=== PATIENT | male | born 1960 | race Caucasian/White ===

== ENCOUNTER 2016-12-19 19:30 | Emergency (ER) | payer SELFPAY ==
--- NOTE | ~2016-12-19 | HP ---
History And Physical [address] [facility] [place]. [address] NAME: BERE CONNOLLY : 64 STATUS : [facility]#: [id number] AGE: 56 ADM/REG DATE : 12/19/16 MR#: [id number] REPORT SERV DATE: 12/20/16 DICTATED BY: PAULO DSAILVA DATE: 12/19/16 REPORT STATUS : Draft TRANSCRIBED BY: MODMauro DATE: 12/19/16 DATE OF ADMISSION: 12/19/2016 ADMISSION DIAGNOSES: Acute stroke, acute seizure, hypercapnic respiratory failure. CHIEF COMPLAINT: Unable to obtain due to the patient's current medical status. HISTORY OF PRESENT ILLNESS: Mr. Connolly is a 56-year-old gentleman with a past medical history of underlying recent stroke who was admitted to the hospital and discharged just about two weeks ago. The patient presented again with symptoms of recurrent stroke. He had a repeat MRI which showed stroke. The CTA scan of his head on 12/19/2016 showed no evidence of bleeding. Of note, he had an MRI scan at the last admission, but not during the new one. Clinically, due to the onset of this inability to talk and right-sided weakness, he was given tPA around 6:15 p.m. on 12/19/2016. While he was being transferred to [facility], the patient had an acute seizure like event in which he stared out and did not make any conversation, according to the paramedics they feel that he had an acute seizure. He was nonresponsive to pain or stimuli. By that time, he was transferred here we had him transferred straight for a repeat CT scan of the brain as he at that point in time was about 45 minutes after getting tPA. That CT scan showed no changes. He was brought back to the emergency room for stabilization and it was noted that he was mildly diaphoretic, mckinney- appearing, taking shallow breaths. We did not get an ABG due to the fact that he had tPA. It was decided that he would need to be intubated at that moment in time. The patient was intubated and sent up to the CCU. He received a total of 4 mg of Versed and propofol and was placed on a propofol drip. He maintained hemodynamic stability throughout. However, the patient had the onset of seizure-like activity while on propofol. Neurology was 1 and patient got Ativan. PAST MEDICAL HISTORY: Recent stroke, left ventricular hypertrophy, left-sided carotid endarterectomy, coronary artery disease, hypertension, proteinuria, diabetes. HOME MEDICATIONS: Aspirin, Norvasc, Coreg, Plavix, multivitamin, vitamin B, Lipitor, lisinopril, Aldactone. ALLERGIES: MORPHINE. SOCIAL HISTORY: The patient currently has his son at the bedside. History of cocaine and marijuana use per record. Recently quit smoking. FAMILY HISTORY: History is not currently available. REVIEW OF SYSTEMS: Unable to obtain review of systems due to the patient's current medical status. PHYSICAL EXAMINATION: VITAL SIGNS: The patient is currently afebrile, heart rate 76, respiratory rate 14, blood pressure currently around 125 systolic. Oxygen saturation 99% on mechanical ventilation. History And Physical [address] [address] NAME: BERE CONNOLLY : 64 STATUS : [facility]#: [id number] AGE: 56 ADM/REG DATE : 12/19/16 MR#: [id number] REPORT SERV DATE: 12/20/16 DICTATED BY: PAULO DASILVA DATE: 12/19/16 REPORT STATUS : Draft TRANSCRIBED BY: CARLOS ENRIQUE DATE: 12/19/16 GENERAL: The patient is sedated. HEENT: PERRLA bilaterally. No JVD is noted. Neck is supple. PULMONARY: Clear to auscultation bilaterally, no wheezing. CARDIAC: Regular rate, no murmurs. ABDOMEN: Nondistended, soft. EXTREMITIES: Peripheral pulses noted in all extremities. NEUROLOGIC: The patient was initially seen and was clearly in a postictal state. He then had jerking of the upper extremity which was a slowed sure left greater than right. He has decreased response to pain on the right upper and lower extremities. He is still able to move those extremities, but less than the left. The patient has threat. No Babinski or clonus noted. LABORATORY EXAMINATION: No leukocytosis. INR of 1.1. Creatinine 2.01, BUN 25. ASSESSMENT AND PLAN: Mr. Connolly is a 56-year-old gentleman who had an acute stroke this evening with repeat. CT scan. After having a seizure and there is not a further bleed, but the patient is now intubated for hypercapnic respiratory failure after staying in a postictal state for over 45 minutes. 1. Acute stroke: Neurology is currently aware. The patient is status post tPA, currently holding all antiplatelet and anticoagulation medications. The patient is on Plavix at home, will need to discuss with Neurology in the morning when in and if to start aspirin and Plavix, 24 hours after stroke. 2. Acute seizure: This is after obtaining tPA, Neurology is also aware, he is getting Ativan now, started on Keppra along with a propofol drip. The patient is to get a MRA and MRI in the morning. 3. Acute hypercapnic respiratory failure: The patient is currently intubated, shall get a venous blood gas, advance ET tube by 3 cm. 4. Diet: The patient is currently n.p.o. 5. Prophylaxis: SCDs, Protonix. Code status. The patient is currently full code. 6. Social: The patient's son is at the bedside, the patient's ex- and is supposed to come. HFQ/MODL Paulo Dasilva MD / [id number]
--- NOTE | ~2016-12-19 | OP ---
Record Of Operation [facility] [address] [place]. [address] NAME: BERE SINGH : 64 STATUS : REG ER PAT#: [id number] AGE: 56 ADM/REG DATE : 12/19/16 MR#: [id number] REPORT SERV DATE: 12/19/16 DICTATED BY: PAULO DASILVA DATE: 12/19/16 REPORT STATUS : Draft TRANSCRIBED BY: MODL DATE: 12/19/16 DATE OF PROCEDURE: 12/19/2016 PROCEDURE: Endotracheal intubation. INDICATION AND PREOPERATIVE DIAGNOSIS: Acute seizure in the setting of acute stroke. The patient presented from outside hospital after getting tPA and had a stroke. His postictal state was prolonged, patient was taking shallow breaths, and mccann appearance of his skin and concern for hypercapnia, did not obtain an arterial blood gas due to recent tPA administration. We then gave him the benefit of the doubt and decided to intubate. POSTOPERATIVE DIAGNOSIS: Acute hypercapnic respiratory failure, acute stroke, acute seizure. PROCEDURE NOTE: The patient was in the emergency room, the patient was given bag-valve mask ventilation, neuro status was limited, the patient received 4 mg of IV Versed along with 100 mg of propofol. Using a MAC 3 blade, achieved only a grade 4 view. We then switched to GlideScope. He did vomit upon switching to the GlideScope. He was suctioned and a GlideScope was able to achieve a grade 2 view. We were able to insert the ET tube past vocal cords upon direct visualization. This was secured and condensation was noted in the endotracheal tube with breath sounds bilaterally unchanged with the CO2 monitor. OUTCOME: Successful endotracheal intubation using a GlideScope as patient was quite anterior. HFQ/CARLOS ENRIQUE Paulo Dasilva MD / [id number]
[~2016-12-19 19:30] MED LIST: ADVIL PO; ASA5GR PO; ASAB PO; COREG25 PO; CRESTOR10 PO; HALF81 PO; LIPITOR40 PO; MULTIVIT/MIN PO; NORV5 PO; PLAVIX PO; PRIN10 PO; SPIRO25 PO; VITAMIN B PO
[2016-12-19] MEDS ORDERED: ASPIRIN PO (19:51)
[2016-12-19] MEDS ORDERED: AMLODIPINE PO (19:51)
[2016-12-19] MEDS ORDERED: ATORVASTATIN PO (19:52)
[2016-12-19] MEDS ORDERED: B COMPLEX PO (19:52)
[2016-12-19] MEDS ORDERED: CARVEDILOL PO (19:52)
[2016-12-19] MEDS ORDERED: LISINOPRIL RX PO (19:53)
[2016-12-19] MEDS ORDERED: CLOPIDOGREL PO (19:53)
[2016-12-19] MEDS ORDERED: MULTIVITAMIN PO (19:53)
[2016-12-19] MEDS ORDERED: SPIRONOLACTONE PO (19:54)
[2016-12-19] MEDS ORDERED: *UNABLE2 (19:55)
[2017-01-14] MEDS ORDERED: NORV5 PO (18:33)
[2017-01-14] MEDS ORDERED: COREG6 PO (18:33)
[2017-01-14] MEDS ORDERED: HALF81 PO (18:33)
[2017-01-14] MEDS ORDERED: DEPAKOT500 PO (18:34)
[2017-01-14] MEDS ORDERED: LIPITOR40 PO (18:34)
[2017-01-14] MEDS ORDERED: PLAVIX PO (18:34)
[2017-01-14] MEDS ORDERED: KEPPRA1000 MG PO (18:34)
[2017-01-14] MEDS ORDERED: POTASSIUM PO (18:35)
== END 2016-12-19 20:12 | disposition admitted as inpatient to this hospital (09) ==
LOC: ER 19:30
DX: I63.9 Cerebral infarction, unspecified (principal); R56.9 Unspecified convulsions; J96.02 Acute respiratory failure with hypercapnia; Z88.5 Allergy status to narcotic agent; Z87.891 Personal history of nicotine dependence; Z79.82 Long term (current) use of aspirin; Z79.899 Other long term (current) drug therapy; I25.10 Atherosclerotic heart disease of native coronary artery without angina pectoris; I10 Essential (primary) hypertension; E11.9 Type 2 diabetes mellitus without complications; Z90.89 Acquired absence of other organs
CPT/HCPCS: 99285

== ENCOUNTER 2016-12-19 20:06 | Inpatient (IN) | payer SELFPAY ==
--- NOTE | ~2016-12-19 | DS ---
Discharge Summary [facility] [address] [place]. [address] NAME: BERE CONNOLLY : 64 STATUS : DIS IN PAT#: [id number] AGE: 56 ADM/REG DATE : 12/19/16 MR#: [id number] REPORT SERV DATE: 01/04/17 DICTATED BY: Greg NAVARRO DATE: 12/24/16 REPORT STATUS : Draft TRANSCRIBED BY: MODL DATE: 12/24/16 ADMISSION DATE: 12/19/2016 DISCHARGE DATE: 12/24/2016 The patient was admitted initially to the fire patroller service and transferred out of the intensive care unit to the care of the Hospitalist Service. CONSULTANTS: Initially, Dr. Mini Haq followed up by Dr. Veronica Kirkland, Neurology and Dr. Wilmer Lugo, Cardiology. DISCHARGE DIAGNOSES: 1. Left parietal cerebrovascular accident, status post tPA. 2. Hypercapnic respiratory failure, resolved. 3. Hypertension. 4. Seizures. 5. Acute kidney injury on chronic kidney disease. 6. History of coronary artery disease, status post coronary artery bypass remote. 7. Peripheral vascular disease, status post left carotid endarterectomy. 8. Tobacco abuse. 9. History of recent stroke earlier this month. HISTORY OF PRESENT ILLNESS: For complete history, please refer to admission H and P by Dr. Dasilva. Briefly, Mr. Connolly is a 56-year-old gentleman, who presented to the emergency room with symptoms of recurrent stroke including inability to talk with right- sided weakness. He was given tPA and transported via ambulance to [facility] from the ER at [facility]. In the ambulance, he apparently had an acute seizure events and by the time he arrived to the emergency room at [place], he was diaphoretic, taking shallow breaths, and mccann appearing per Dr. Dasilva's note. They did not do an ABG secondary to the fact that he had received tPA. He was electively intubated and sent to CCU. For the next several days, he was under the care of the fire patroller in the critical care unit. Over the next several days, he remained in CCU. He was weaned off the ventilator successfully on the morning of 12/21/2016. On 12/22/2016, he continued to improve clinically and was transferred out to a telemetry bed on the stroke unit. He was continued to be followed by Dr. Veronica Kirkland of Neurology. I initially saw Mr. Connolly for the first time on 12/23/2016. He was in no acute distress. Denied any chest pain or shortness of breath or abdominal pain. He reported that he was ambulatory to the bathroom without any difficulty. He denied any dizziness. However, he did complain of some bilateral calf pain, left leg greater than right. Other than that, he was alert and oriented, pleasant and cooperative. I did order a venous duplex of the bilateral lower extremities to rule out DVT. He did have this study done on 12/24/2016 and it was negative for DVT in either lower extremity. Most of his medications were held on admission and I did resume some of them on 12/23/2016. On 12/24/2016, he was doing well, no complaints. Vital signs were stable. Blood pressure 124/72, pulse 84, respirations 16, and he is afebrile at 3:30 p.m. We were awaiting Mr. Connolly's family to arrive with the bottles of medications that he was prescribed and taking at home prior to his admission. These were prescribed at [facility] at his discharge three weeks ago. So, with his vital signs being stable and his physical exam being Discharge Summary [address] [address] NAME: BERE CONNOLLY : 64 STATUS : DIS IN PAT#: [id number] AGE: 56 ADM/REG DATE : 12/19/16 MR#: [id number] REPORT SERV DATE: 01/04/17 DICTATED BY: rGeg NAVARRO DATE: 12/24/16 REPORT STATUS : Draft TRANSCRIBED BY: CARLOS ENRIQUE DATE: 12/24/16 unremarkable, he was discharged home in stable condition. Discharge labs include a basic metabolic panel revealing a sodium of 142, potassium 3.9, chloride 107, CO2 of 26, BUN 19, creatinine 1.44, GFR 55, glucose 86, calcium 8.8, magnesium 2.0. CBC revealed a white count of 8.8, hemoglobin 15, hematocrit 44.3, platelets 343,000. I did go through all the medications with Mr. Connolly and his son, who is going to live with and his ex who was at the bedside as well. Prior to his admission to [facility] three weeks ago with his first stroke, he was not on any cardiac medications. DISCHARGE ORDERS: Include: 1. Diet: 4 g cardiac diet is recommended. 2. Activity as tolerated. DISCHARGE MEDICATIONS: 1. Amlodipine 5 mg p.o. b.i.d. 2. Lipitor 80 mg p.o. daily at bedtime, prescription provided. 3. Carvedilol 6.25 mg p.o. b.i.d., prescription provided. 4. Plavix 75 mg p.o. daily. 5. Depakote 500 mg p.o. b.i.d., prescription provided. 6. Keppra 1000 mg p.o. b.i.d., prescription provided. 7. Multivitamin 1 p.o. daily. 8. Vitamin B complex stress tab one tab p.o. daily. 9. Aspirin 81 mg p.o. daily. The patient's son will come back to the Outpatient Pharmacy in the morning to garbage pick up worker his prescriptions that the hospital is providing. He also has a followup appointment with [facility] on 01/14/2017 at 2 p.m. DICTATED BY: DUYEN Gutiérrez DICTATED FOR: Mason Workman/CARLOS ENRIQUE DUYEN Gutiérrez Greg Navarro M.D. / [id number] CC: Austin Anderson M.D. [facility]
--- NOTE | ~2016-12-19 | EEG ---
Electroencephalogram [id number] [place]. [address] NAME: BERE SINGH : 64 STATUS : ADM IN PAT#: [id number] AGE: 56 ADM/REG DATE : 12/19/16 MR#: [id number] REPORT SERV DATE: 12/22/16 DICTATED BY: MINI HAQ DATE: 12/22/16 REPORT STATUS : Draft TRANSCRIBED BY: MODL DATE: 12/22/16 INTERPRETING PHYSICIAN: Mini Haq MD. EEG NUMBER: [id number]. REASON FOR EEG: Acute stroke, recurrent seizures. The patient was intubated and sedated. 23 surface electrodes, 10-20 international placement was used. During the more awake portions of the recording towards the end of the study, the patient's background activity showed moderate voltage, well organized 8 to 9 cycles per second located in the posterior head regions. Intermittent sharp in appearance waveforms were seen in frontal-central regions bilaterally during this study. No sustained epileptiform activity was noted during this recording. The patient became restless towards the end of the recording. No epileptiform activity was seen. Increase of muscle and activity anteriorly was noted, and the patient was more awake. title abstractor showed sinus rhythm, rate of approximately 72 beats per minute. IMPRESSION: MILDLY ABNORMAL EEG CHARACTERIZED BY PRESENCE OF DIFFUSE SLOWING OF ACTIVITY. THE PATIENT, HOWEVER, WAS SEDATED WITH DIPRIVAN AND PRECEDEX. WITH DECREASED SEDATION, THE BACKGROUND ACTIVITY APPEARED TO BE WELL ORGANIZED AND CLOSER TO NORMAL RANGE. THIS EEG MAY REPRESENT A POSTICTAL STATE . REPEAT EEG IS RECOMMENDED IF CLINICALLY INDICATED. NO SIGNIFICANT ASYMMETRY OF CEREBRAL ACTIVITY WAS PRESENT. THIS EEG MAY REPRESENT UNDERLYING DIFFUSE CEREBRAL DYSFUNCTION, HOWEVER, WITH THE PATIENT BEING SEDATED THIS DIAGNOSIS . LISSETT/CARLOS ENRIQUE Mini Haq MD / [id number] CC: Paulo Dasilva MD
--- NOTE | ~2016-12-19 | CN ---
Consultation Report [facility] [address] [place]. [address] NAME: BERE SINGH : 64 STATUS : ADM IN PAT#: [id number] AGE: 56 ADM/REG DATE : 12/19/16 MR#: [id number] REPORT SERV DATE: 12/20/16 DICTATED BY: MINI HAQ DATE: 12/20/16 REPORT STATUS : Draft TRANSCRIBED BY: MODMauro DATE: 12/20/16 NEUROLOGICAL CONSULTATION DATE OF CONSULTATION: 12/20/2016 HISTORY OF PRESENT ILLNESS: The patient is a 56-year-old white male with a known history of recent, approximately three weeks ago, history of a stroke for which he was hospitalized in [facility]. The patient's MRI at that time showed presence of an acute left hemispheric stroke. The patient was found by his son to be sitting on the porch smoking cigarette. Son noted that the patient had right facial droop and drooling and was having difficulty speaking and communicating. He was taken to the emergency room at [facility]. In the emergency room, the patient was found to be aphasic, had very minimal right-sided weakness. CT scan of the head showed no acute lesions or bleeding. I was contacted to advise the emergency room physician, Dr. Rodriguez, whether the patient should receive tPA. The patient's blood pressure was 170/90 at that time. Unfortunately, the patient's kidney function was abnormal with creatinine of over 2. The patient could not receive IV contrast. I recommended the patient with a history of small previous stroke and a new onset of aphasia to receive tPA in order to prevent the extension of the stroke, which could potentially involve the entire left hemisphere in the left MCA distribution. The patient was being transferred to [place] after receiving the tPA. The appropriate doses of tPA are corrected for renal function as the patient was noted by EMS to have a speech arrest and staring in space, it was presumed that the patient had a seizure, the patient was taken back to the emergency room to be stabilized. The patient was given Keppra and transferred to this [facility]. Repeat CT scan of the head which was done shortly after the patient received tPA showed no evidence of bleeding and no evidence of acute changes. On arrival to this hospital, the patient had another CT and had no evidence of acute bleed. The patient was observed to have another seizure after arriving here and was pale and diaphoretic. The patient was intubated to protect his airway because of respiratory difficulty. The events occurred after 7 p.m. and the neurologist waste cotton cleaner was contacted. He recommended to add Depakote to the patient's Keppra. The patient was started on propofol and Versed with decrease of abnormal activity. This morning, I was asked to evaluate the patient in the CCU Unit. PAST MEDICAL HISTORY: As mentioned above. The patient has a history of recent stroke, has a history of coronary artery disease, status post left carotid endarterectomy, status post CABG as per son the patient had a heart attack at age 32. The patient's ex- provided additional history later today, I was able to speak to her during my second rounds on the patient this afternoon. The patient's ex- stated that the patient's father suffered a stroke in his 70s. His father was adopted. His mother may have had a stroke also in her 70s, and also has a history of coronary artery disease in the patient's family. SOCIAL HISTORY: The patient continues to smoke. There is no history of alcohol use; however, there is a mention in the patient's records of the patient being positive for cocaine during his previous hospitalization with a previous stroke. Consultation Report [address] [place]. [address] NAME: BERE SINGH : 64 STATUS : ADM IN [facility]#: [id number] AGE: 56 ADM/REG DATE : 12/19/16 MR#: [id number] REPORT SERV DATE: 12/20/16 DICTATED BY: MINI HAQ DATE: 12/20/16 REPORT STATUS : Draft TRANSCRIBED BY: MODMauro DATE: 12/20/16 ALLERGIES: NO KNOWN ALLERGY. REVIEW OF SYSTEMS: Could not be obtained as per patient's family and the patient continued to smoke. Had no recent complaints after his stroke appeared to recover very quickly and had very little residual deficit. The speech problem that was observed yesterday was new or worsening of mild preexisting deficit, it was not clear from the history obtained from the family. The rest of review of system was negative. The patient does not have any history of recent head trauma. No history to suggest problems with joints or collagen vascular disease. The patient's stated that she was told during his last hospitalization three weeks ago that the that the patient's kidney function was mildly compromised. As per patient's ex-, there was no history of kidney disease in the family. The patient, however, did have a history of hypertension not known whether it was controlled. No history of diabetes mellitus. PHYSICAL EXAMINATION: VITAL SIGNS: The patient is currently on the pressure support to maintain his blood pressure between 150 and 170 systolic. Blood pressure has been maintained with Levophed. Pulse was 64, respirations 12, and temperature is 98.6. GENERAL: The patient was orally intubated and sedated. When sedation was decreased, the patient became very restless, moved all four extremities. He was trying to get up from the lying position. Did not seem to follow commands. CHEST: Symmetrical. LUNGS: Appeared clear. ABDOMEN: Soft, nontender. The patient had a midline sternotomy well-healed postsurgical scar, status post left carotid endarterectomy. EXTREMITIES: Show no clubbing, cyanosis. There was no peripheral edema. Peripheral pulses were present and symmetrical. SKIN: Clear. No petechiae, ecchymosis, or hemorrhages noted. NEUROLOGICAL EXAMINATION: MENTAL STATUS EXAM: The patient's mental status could not be evaluated in view of him being sedated and intubated. The patient, however, followed some commands when sedation was decreased and appeared to respond to voice. Eye exam, sclerae were not icteric. Conjunctiva was pink. Pupils were 3 mm, eyes were in mid position. Pupils were reacted to light. Corneal reflex was present. On inspection of the face, there was no evidence of facial asymmetry. The patient is orally intubated. Cranial nerves could not be tested. Neck was supple. There is no Kernig or Brudzinski. Cervical range of motion spontaneously appeared unimpaired. The rest of examination showed symmetrical withdrawal to pain except for mild decrease of strength or responsiveness in the right arm. Gag reflex was normal and the patient appeared to breathe over the vent. Ventilator settings were tidal volume of 600, rate of 12, PEEP of 5, FiO2 of 40, PIP of 23. LABORATORY STUDIES: Sodium 143, potassium 4.4, chloride 111, BUN 25, creatinine 2.02, Consultation Report [address] [place]. [address] NAME: BERE SINGH : 64 STATUS : ADM IN PAT#: [id number] AGE: 56 ADM/REG DATE : 12/19/16 MR#: [id number] REPORT SERV DATE: 12/20/16 DICTATED BY: MINI HAQ DATE: 12/20/16 REPORT STATUS : Draft TRANSCRIBED BY: CARLOS ENRIQUE DATE: 12/20/16 glomerular filtration rate 36, glucose 95. WBC count 13.2, hemoglobin 14, hematocrit 41.8, and platelet count 404,000. PT/INR 1.9. MRI of the brain was reviewed, appears to show a small subcortical area of ischemia in the left middle cerebral artery distribution. No evidence of hemorrhage, midline shift, or subdural or epidural collection present. IMPRESSION: Acute cerebrovascular accident could not exclude an embolic stroke. The patient has recent history of a stroke approximately three weeks ago which appears to have been in the same vascular distribution. History of coronary artery disease. Disease status post CABG, history of IA at early age constitutes a significant risk factor for his stroke. The patient has a family history of a stroke; therefore, I would recommend to obtain hypercoagulable profile which should include C-reactive protein, lupus anticoagulant, protein C, protein S, antithrombin III, homocystine levels (especially in view of the finding of abnormal renal function). I would recommend to obtain echocardiogram with a bubble study and eventually PEYTON to rule out bacterial endocarditis since the patient has known history of drug use. I would recommend continue the patient's blood pressure in the 150-160 systolic range until tomorrow until the patient could be extubated. Recommend to follow stroke orders including deep venous thrombosis prophylaxis, restart aspirin and Plavix after 24 hours following the tPA. The patient would be a good candidate for a loop recorder to evaluate for possible cardiac arrhythmias and/or atrial fibrillation. Stroke prevention and smoking cessation will be discussed with the patient once he is extubated and able to cooperate. I would initiate statins as soon as the patient is able to swallow and PT, OT, and Speech Therapy evaluation. Above was discussed with the patient's son and the patient's ex-. This was a critical care visit, total time 85 minutes two visits combine, the morning and afternoon visit. LISSETT/CARLOS ENRIQUE Mini Haq MD / [id number] CC: Paulo Dasilva MD UNKNOWN
--- NOTE | ~2016-12-19 | CN ---
Consultation Report [facility] [address] [place]. [address] NAME: BERE CONNOLLY : 64 STATUS : ADM IN [facility]#: [id number] AGE: 56 ADM/REG DATE : 12/19/16 MR#: [id number] REPORT SERV DATE: 12/21/16 DICTATED BY: PONCE PATTERSON DATE: 12/21/16 REPORT STATUS : Draft TRANSCRIBED BY: MODL DATE: 12/21/16 CARDIOLOGY CONSULTATION DATE OF CONSULTATION: 12/21/2016 REASON FOR CONSULTATION: This is cardiology consultation, due to history of coronary disease. HISTORY OF PRESENT ILLNESS: Mr. Connolly is a 56-year-old gentleman, who presented to an outside facility with evidence of acute CVA. He had a recent history of TIA. This appeared to be consistent with a large MCA distribution and he underwent tPA administration. After that, he began to have some issues with seizures and underwent intubation and now is extubated. We have been consulted, due the fact that the patient has known history of coronary disease. He is status post CAB in [place] in 2001. He also has problems with vasculopathy and had carotid endarterectomy performed in 2008. Despite these histories of peripheral vascular disease and coronary artery disease. The patient has had normal ejection fraction including a recent echocardiogram performed earlier in November, which demonstrated both normal LV systolic function, no regional wall motion abnormalities, and a negative bubble study. He is currently chest pain free. Hemodynamically he is stable. Initially, he received some IV pressor agents to try to maintain his systolic blood pressure greater than 150, due to the CVA, but these have now been turned off. PAST MEDICAL HISTORY: 1. Notable for coronary artery disease, status post CAB in 2001, normal ejection fraction. 2. History of carotid endarterectomy in 2008. 3. History of TIA and now history of CVA. 4. Hypertension. HOME MEDICATIONS: Amlodipine, aspirin, Plavix, lisinopril, and spironolactone. FAMILY HISTORY: Negative for premature coronary disease. SOCIAL HISTORY: The patient has a known history of drug or illicit drug abuse that includes being tested positive for cocaine on hospital admissions in the past including recent admission in early November. History of marijuana and benzodiazepine use as well. The patient continues to use tobacco. Denies alcohol. REVIEW OF SYSTEMS: As noted above. All other systems reviewed and negative. PHYSICAL EXAMINATION: VITAL SIGNS: Blood pressure of 150/76, pulse 90, and respirations 16. GENERAL: Well-developed, well-nourished. HEENT: No icterus. Good dentition. Consultation Report [facility] [address] [place]. [address] NAME: BERE CONNOLLY : 64 STATUS : ADM IN PAT#: [id number] AGE: 56 ADM/REG DATE : 12/19/16 MR#: [id number] REPORT SERV DATE: 12/21/16 DICTATED BY: PONCE PATTERSON DATE: 12/21/16 REPORT STATUS : Draft TRANSCRIBED BY: CARLOS ENRIQUE DATE: 12/21/16 NECK: Supple. No masses or thyromegaly LUNGS: Breathing comfortably. No rales or wheezes. COR: Normal S1, S2. No S3 or S4. No murmurs, clicks, rubs. No JVD ABD: Soft, nondistended, nontender, no hepatosplenomegaly. EXT: No clubbing, cyanosis or edema. Peripheral pulses 2+/=bilaterally. SKIN: Warm and dry. No visible lesions. MS: Chest wall without deformity, no obvious clavicular fractures. NEURO/PSYCH: Oriented X3. No anxiety or depression. DIAGNOSTIC DATA: EKG has not yet been done. Most recent EKG was unremarkable. Telemetry has been on unremarkable. IMPRESSION: 56-year-old gentleman with longstanding history of coronary artery disease and peripheral vascular disease, status post CAB, status post carotid endarterectomy, presents with CVA. From a cardiac standpoint, he appears to be stable. He had a recent echocardiogram showing normal cardiac structure and function. Normal bubble study. I would recommend checking his carotid arteries via ultrasound given his known history of carotid artery disease and carotid endarterectomy. I would not recommend implantable loop recorder, as I believe followup has been an issue in the past. The patient would have followup difficulties at this time as well. Without appropriate followup of the loop recorder it will difficult to glean appropriate information to suggest whether he needs long-term anticoagulation or not. Otherwise, he appears to be hemodynamically stable and stable from a coronary artery disease standpoint at this point in time. IRVING/CARLOS ENRIQUE Ponce Patterson M.D. / [id number] CC: Paulo Dasilva MD
[~2016-12-19 20:06] MED LIST changes: +*UNABLE2; +AMLODIPINE PO; +ASPIRIN PO; +ATORVASTATIN PO; +B COMPLEX PO; +CARVEDILOL PO; +CLOPIDOGREL PO; +LISINOPRIL RX PO; +MULTIVITAMIN PO; +SPIRONOLACTONE PO
[2016-12-20 01:00] LABS: BE (BASE EXCESS) -4.7 MEQ/L (0 +/- 2.5); CARBOXYHEMOGLOBIN 0.6 % (0-3); HCO3 (ACTUAL BICARBONATE) 19.5 MEQ/L (23-27); HEMOBLOGIN CONTENT 14.3 G/DL (14-18); INSTRUMENT SERIAL # 35151; METHEMOGLOBIN 0.5 % (0-3); MODE CMV; OPERATOR ID 33449; PCO2 (CO2 TENSION) 34 MMHG (35-45); PO2 (O2 TENSION) 70 MMHG (79-93); SAMPLE Venous; TIDAL VOLUME 600 ML; pH 7.38 (7.37-7.43)
[2016-12-20 03:37] LABS: BE (BASE EXCESS) -5.1 MEQ/L (0 +/- 2.5); CARBOXYHEMOGLOBIN 0.4 % (0-3); HCO3 (ACTUAL BICARBONATE) 18.8 MEQ/L (23-27); HEMOBLOGIN CONTENT 13.9 G/DL (14-18); INSTRUMENT SERIAL # 35151; METHEMOGLOBIN 0.3 % (0-3); MODE CMV; O2 CONTENT 18.7 VOL% (18-24); OPERATOR ID 13415; PCO2 (CO2 TENSION) 32 MMHG (35-45); PO2 (O2 TENSION) 88 MMHG (79-93); SAMPLE Venous; TIDAL VOLUME 600 ML; pH 7.39 (7.37-7.43)
[2016-12-20 03:57] LABS: BASOPHILS 0.2 %; BASOPHILS ABSOLUTE 0.02 10/3/uL (0.0-0.16); EOSINOPHILS 1.3 %; EOSINOPHILS ABSOLUTE 0.17 10/3/uL (0.0-0.53); HEMATOCRIT 41.8 % (40.0-51.0); IMMATURE GRANULOCYTES 0.2 %; IMMATURE GRANULOCYTES ABSOLUTE 0.03 10/3/uL (0.0-0.11); LYMPHOCYTES 16.9 %; LYMPHOCYTES ABSOLUTE 2.23 10/3/uL (0.67-4.30); MEAN CORPUS HGB CONC 33.5 g/dL (32.0-36.0); MEAN CORPUSCULAR HEMOGLOB 28.6 pg (26.0-34.0); MEAN CORPUSCULAR VOLUME 85.5 fL (80-100); MEAN PLATELET VOLUME 9.5 fL (9.2-13.0); MONOCYTES 5.8 %; MONOCYTES ABSOLUTE 0.77 10/3/uL (0.21-1.20); NEUTROPHILS 75.6 %; NEUTROPHILS ABSOLUTE 9.95 10/3/uL (2.02-8.40); PLATELET COUNT 404 10/3/uL (150-400); RBC DISTRIBUTION WIDTH 12.5 % (12.0-16.0); RED CELL COUNT 4.89 10/6/uL (4.7-6.1)
[2016-12-20 04:04] LABS: MANUAL DIFF NO %; WHITE BLOOD CELLS 13.2 10/3/uL (4.5-10.5)
[2016-12-20 04:17] LABS: INTERNATIONAL NORMAL RATI 1.9 UNITS (-)
[2016-12-20 04:31] LABS: BUN (BLOOD UREA NITROGEN) 25 MG/DL (6-23); CALCIUM, SERUM 8.4 MG/DL (8.5-10.4); CHLORIDE, SERUM 111 MMOL/L (96-112); CO2 (CARBON DIOXIDE) 23 MMOL/L (24-34); CREATININE 2.02 MG/DL (0.70-1.30); GFR AFRICAN AMERICAN 42 ML/MIN (>=60); GFR NON AFRICAN AMERICAN 36 ML/MIN (>=60); GLUCOSE, SERUM 95 MG/DL (60-99); POTASSIUM, SERUM 4.4 MMOL/L (3.5-5.3); SODIUM, SERUM 143 MMOL/L (135-148)
[2016-12-20 10:02] LABS: TROPONIN I 0.06 NG/ML (<0.05)
[2016-12-20 16:39] LABS: BENZODIAZEPINES (NOT ORD) POS (NEG); PHENCYCLIDINE(PCP) NEG (NEG)
[2016-12-20 16:40] LABS: AMPHETAMINES (NOT ORD) NEG (NEG); BARBITURATES (NOT ORDERED NEG (NEG); CANNABINOIDS (THC) POS (NEG); COCAINE (NOT ORDERED) NEG (NEG); OPIATES NEG (NEG); TRICYCLICS NEG (NEG)
[2016-12-21 03:50] LABS: ALLENS TEST Pos; BE (BASE EXCESS) -3.1 MEQ/L (0 +/- 2.5); CARBOXYHEMOGLOBIN 0.1 % (0-3); HCO3 (ACTUAL BICARBONATE) 20.9 MEQ/L (23-27); HEMOBLOGIN CONTENT 14.2 G/DL (14-18); INSTRUMENT SERIAL # 35151; METHEMOGLOBIN 0.4 % (0-3); MODE CMV; O2 CONTENT 19.6 VOL% (18-24); OPERATOR ID 33449; PCO2 (CO2 TENSION) 34 MMHG (35-45); PO2 (O2 TENSION) 122 MMHG (79-93); SAMPLE Arterial; TIDAL VOLUME 600 ML
[2016-12-21 04:45] LABS: BASOPHILS 0.4 %; BASOPHILS ABSOLUTE 0.04 10/3/uL (0.0-0.16); EOSINOPHILS 5.3 %; HEMATOCRIT 40.2 % (40.0-51.0); HEMOGLOBIN 13.3 g/dL (13.6-17.8); IMMATURE GRANULOCYTES 0.2 %; IMMATURE GRANULOCYTES ABSOLUTE 0.02 10/3/uL (0.0-0.11); LYMPHOCYTES 21.7 %; LYMPHOCYTES ABSOLUTE 2.03 10/3/uL (0.67-4.30); MEAN CORPUS HGB CONC 33.1 g/dL (32.0-36.0); MEAN CORPUSCULAR HEMOGLOB 28.2 pg (26.0-34.0); MEAN CORPUSCULAR VOLUME 85.4 fL (80-100); MEAN PLATELET VOLUME 9.5 fL (9.2-13.0); MONOCYTES 7.1 %; MONOCYTES ABSOLUTE 0.66 10/3/uL (0.21-1.20); NEUTROPHILS 65.3 %; NEUTROPHILS ABSOLUTE 6.11 10/3/uL (2.02-8.40); PLATELET COUNT 383 10/3/uL (150-400); RBC DISTRIBUTION WIDTH 12.7 % (12.0-16.0); RED CELL COUNT 4.71 10/6/uL (4.7-6.1); WHITE BLOOD CELLS 9.4 10/3/uL (4.5-10.5)
[2016-12-21 04:47] LABS: MANUAL DIFF NO %
[2016-12-21 04:53] LABS: CALCIUM, SERUM 8.8 MG/DL (8.5-10.4); CHLORIDE, SERUM 113 MMOL/L (96-112); CO2 (CARBON DIOXIDE) 21 MMOL/L (24-34); GFR AFRICAN AMERICAN 60 ML/MIN (>=60); GFR NON AFRICAN AMERICAN 52 ML/MIN (>=60); GLUCOSE, SERUM 81 MG/DL (60-99); SODIUM, SERUM 144 MMOL/L (135-148)
[2016-12-21 04:56] LABS: BUN (BLOOD UREA NITROGEN) 16 MG/DL (6-23); CREATININE 1.51 MG/DL (0.70-1.30); POTASSIUM, SERUM 4.5 MMOL/L (3.5-5.3)
[2016-12-21 09:53] LABS: ALBUMIN 2.6 G/DL (3.5-5.0); SGPT(ALT) 19 U/L (5-65); TOTAL BILIRUBIN 0.2 MG/DL (0-1.2)
[2016-12-21 09:54] LABS: ALKALINE PHOSPHATASE 117 U/L (45-117); DIRECT BILIRUBIN < 0.1 MG/DL (0.0-0.4); INDIRECT BILIRUBIN(NOT ORDER) 0.1 MG/DL (0.1-0.9); SGOT(AST) 31 U/L (5-40); TOTAL PROTEIN 6.4 G/DL (6.0-8.5)
[2016-12-21 13:24] LABS: ASCORBIC ACID (UR NOT ORDER) NEG (NEG); BILIRUBIN, URINE NEGATIVE (NEG); KETONE, URINE NEGATIVE (NEG); LEUKOCYTE ESTERASE(NOT OR NEG (NEG); WBC (NOT ORDERED) (RFLEX) 2 (0-5)
[2016-12-21 14:26] LABS: CHOL/HDL RATIO(NOT ORDER) 4.9 (0-5); CHOLESTEROL 194 MG/DL (< 200); HDL CHOLESTEROL 40 MG/DL (> 39); HOMOCYSTEINE 15.2 UMOL/L (4.3-12.9); LDL CHOLESTEROL 97 MG/DL (< 130); NON-HDL CHOLESTEROL 154 MG/DL (< 160); TRIGLYCERIDE 288 MG/DL (< 150)
[2016-12-21 14:27] LABS: FOLATE 17.6 NG/ML (>5.2)
[2016-12-21 15:36] LABS: RETICULOCYTE COUNT 0.9 % (0.5-2.5); RETICULOCYTE COUNT ABSOLUTE 52.5 10/3/uL (20.2-119.8)
[2016-12-21 15:42] LABS: INTERNATIONAL NORMAL RATI 1.2 UNITS (-)
[2016-12-21 15:43] LABS: PARTIAL THROMBO TIME 34.4 SEC (22.5-37.2)
[2016-12-21 15:44] LABS: PROTIME (NOT ORD) 14.6 SEC (12.0-14.5)
[2016-12-21 15:51] LABS: ACETONE NEG
[2016-12-21 16:44] LABS: FERRITIN 239 NG/ML (26-388); IRON BINDING CAPACITY 351 MCG/DL (250-450); ULTRASENSITIVE TSH 0.376 MCIU/ML (0.358-3.740)
[2016-12-21 16:45] LABS: CPK 197 U/L (0-200)
[2016-12-21 16:47] LABS: TROPONIN I 0.07 NG/ML (<0.05)
[2016-12-22 03:32] LABS: BASOPHILS 0.2 %; BASOPHILS ABSOLUTE 0.02 10/3/uL (0.0-0.16); EOSINOPHILS 3.8 %; EOSINOPHILS ABSOLUTE 0.49 10/3/uL (0.0-0.53); HEMOGLOBIN 15.4 g/dL (13.6-17.8); IMMATURE GRANULOCYTES 0.3 %; IMMATURE GRANULOCYTES ABSOLUTE 0.04 10/3/uL (0.0-0.11); LYMPHOCYTES 15.2 %; LYMPHOCYTES ABSOLUTE 1.97 10/3/uL (0.67-4.30); MEAN CORPUS HGB CONC 33.6 g/dL (32.0-36.0); MEAN CORPUSCULAR HEMOGLOB 28.6 pg (26.0-34.0); MEAN CORPUSCULAR VOLUME 85.2 fL (80-100); MEAN PLATELET VOLUME 9.3 fL (9.2-13.0); MONOCYTES ABSOLUTE 1.04 10/3/uL (0.21-1.20); NEUTROPHILS 72.5 %; NEUTROPHILS ABSOLUTE 9.41 10/3/uL (2.02-8.40); PLATELET COUNT 441 10/3/uL (150-400); RBC DISTRIBUTION WIDTH 12.8 % (12.0-16.0); RED CELL COUNT 5.39 10/6/uL (4.7-6.1)
[2016-12-22 03:38] LABS: HEMATOCRIT 45.9 % (40.0-51.0); MANUAL DIFF NO %
[2016-12-22 03:44] LABS: BUN (BLOOD UREA NITROGEN) 22 MG/DL (6-23); CALCIUM, SERUM 9.4 MG/DL (8.5-10.4); CHLORIDE, SERUM 108 MMOL/L (96-112); CO2 (CARBON DIOXIDE) 25 MMOL/L (24-34); CREATININE 1.79 MG/DL (0.70-1.30); GFR AFRICAN AMERICAN 49 ML/MIN (>=60); GFR NON AFRICAN AMERICAN 42 ML/MIN (>=60); GLUCOSE, SERUM 94 MG/DL (60-99); PHOSPHORUS, SERUM 3.6 MG/DL (2.5-4.5); POTASSIUM, SERUM 3.8 MMOL/L (3.5-5.3); SODIUM, SERUM 142 MMOL/L (135-148)
[2016-12-23 05:05] LABS: BASOPHILS 0.4 %; BASOPHILS ABSOLUTE 0.04 10/3/uL (0.0-0.16); EOSINOPHILS 6.1 %; EOSINOPHILS ABSOLUTE 0.58 10/3/uL (0.0-0.53); HEMATOCRIT 45.5 % (40.0-51.0); HEMOGLOBIN 15.3 g/dL (13.6-17.8); IMMATURE GRANULOCYTES 0.3 %; IMMATURE GRANULOCYTES ABSOLUTE 0.03 10/3/uL (0.0-0.11); LYMPHOCYTES 16.7 %; LYMPHOCYTES ABSOLUTE 1.58 10/3/uL (0.67-4.30); MEAN CORPUS HGB CONC 33.6 g/dL (32.0-36.0); MEAN CORPUSCULAR HEMOGLOB 28.2 pg (26.0-34.0); MEAN CORPUSCULAR VOLUME 83.8 fL (80-100); MEAN PLATELET VOLUME 9.5 fL (9.2-13.0); MONOCYTES 7.3 %; MONOCYTES ABSOLUTE 0.69 10/3/uL (0.21-1.20); NEUTROPHILS 69.2 %; NEUTROPHILS ABSOLUTE 6.53 10/3/uL (2.02-8.40); PLATELET COUNT 371 10/3/uL (150-400); RBC DISTRIBUTION WIDTH 12.8 % (12.0-16.0); RED CELL COUNT 5.43 10/6/uL (4.7-6.1); WHITE BLOOD CELLS 9.5 10/3/uL (4.5-10.5)
[2016-12-23 05:07] LABS: MANUAL DIFF NO %
[2016-12-23 05:24] LABS: ALBUMIN 2.9 G/DL (3.5-5.0); BUN (BLOOD UREA NITROGEN) 19 MG/DL (6-23); CALCIUM, SERUM 9.5 MG/DL (8.5-10.4); CHLORIDE, SERUM 108 MMOL/L (96-112); CO2 (CARBON DIOXIDE) 24 MMOL/L (24-34); GFR AFRICAN AMERICAN 60 ML/MIN (>=60); GFR NON AFRICAN AMERICAN 52 ML/MIN (>=60); GLUCOSE, SERUM 111 MG/DL (60-99); POTASSIUM, SERUM 3.6 MMOL/L (3.5-5.3); SODIUM, SERUM 142 MMOL/L (135-148)
[2016-12-23] MEDS ORDERED: PLAVIX PO (14:36)
[2016-12-23] MEDS ORDERED: PRIN10 PO (14:36)
[2016-12-23] MEDS ORDERED: CENTRUM PO (14:36)
[2016-12-23] MEDS ORDERED: HALF81 PO (14:36)
[2016-12-23] MEDS ORDERED: SPIRO25 PO (14:36)
[2016-12-23] MEDS ORDERED: COREG25 PO (14:36)
[2016-12-23] MEDS ORDERED: VITAMIN B PO (14:37)
[2016-12-23] MEDS ORDERED: LIPITOR40 PO (14:37)
[2016-12-23] MEDS ORDERED: NORV5 PO (14:38)
[2016-12-24 04:39] LABS: BASOPHILS 0.6 %; BASOPHILS ABSOLUTE 0.05 10/3/uL (0.0-0.16); EOSINOPHILS 7.5 %; EOSINOPHILS ABSOLUTE 0.66 10/3/uL (0.0-0.53); HEMATOCRIT 44.3 % (40.0-51.0); IMMATURE GRANULOCYTES 0.2 %; IMMATURE GRANULOCYTES ABSOLUTE 0.02 10/3/uL (0.0-0.11); LYMPHOCYTES 21.6 %; LYMPHOCYTES ABSOLUTE 1.89 10/3/uL (0.67-4.30); MEAN CORPUS HGB CONC 33.9 g/dL (32.0-36.0); MEAN CORPUSCULAR HEMOGLOB 28.5 pg (26.0-34.0); MEAN CORPUSCULAR VOLUME 84.1 fL (80-100); MEAN PLATELET VOLUME 9.4 fL (9.2-13.0); MONOCYTES 8.1 %; MONOCYTES ABSOLUTE 0.71 10/3/uL (0.21-1.20); NEUTROPHILS ABSOLUTE 5.42 10/3/uL (2.02-8.40); PLATELET COUNT 343 10/3/uL (150-400); RBC DISTRIBUTION WIDTH 12.7 % (12.0-16.0); RED CELL COUNT 5.27 10/6/uL (4.7-6.1); WHITE BLOOD CELLS 8.8 10/3/uL (4.5-10.5)
[2016-12-24 04:42] LABS: MANUAL DIFF NO %
[2016-12-24 04:51] LABS: BUN (BLOOD UREA NITROGEN) 19 MG/DL (6-23); CALCIUM, SERUM 8.8 MG/DL (8.5-10.4); CHLORIDE, SERUM 107 MMOL/L (96-112); CO2 (CARBON DIOXIDE) 26 MMOL/L (24-34); CREATININE 1.44 MG/DL (0.70-1.30); GFR AFRICAN AMERICAN 63 ML/MIN (>=60); GFR NON AFRICAN AMERICAN 55 ML/MIN (>=60); POTASSIUM, SERUM 3.9 MMOL/L (3.5-5.3); SODIUM, SERUM 142 MMOL/L (135-148)
[2016-12-24 04:53] LABS: GLUCOSE, SERUM 86 MG/DL (60-99)
[2016-12-24 13:09] LABS: PROTEIN C ACTIVITY 292 % (70-145); PROTEIN S ACTIVITY 191 % (69-161)
[2016-12-24 17:13] LABS: ANTI-CARDIOLIPIN ANTIBODY IGA 2 CU (0-20)
[2016-12-24] MEDS ORDERED: LIPITOR80 MG PO (18:44)
[2016-12-24] MEDS ORDERED: COREG6 PO (18:45)
[2016-12-24] MEDS ORDERED: DEPAKOT500 PO (18:47)
[2016-12-24] MEDS ORDERED: KEPPRA1000 MG PO (18:50)
[2016-12-24] MEDS ORDERED: MULTIVIT/MIN PO (18:51)
[2016-12-25 15:10] LABS: PROTEIN C ANTIGEN 174 % (70-140)
[2017-01-14] MEDS ORDERED: NORV5 PO (18:33)
[2017-01-14] MEDS ORDERED: COREG6 PO (18:33)
[2017-01-14] MEDS ORDERED: HALF81 PO (18:33)
[2017-01-14] MEDS ORDERED: DEPAKOT500 PO (18:34)
[2017-01-14] MEDS ORDERED: LIPITOR40 PO (18:34)
[2017-01-14] MEDS ORDERED: KEPPRA1000 MG PO (18:34)
[2017-01-14] MEDS ORDERED: PLAVIX PO (18:34)
[2017-01-14] MEDS ORDERED: POTASSIUM PO (18:35)
== END 2016-12-24 20:56 | disposition home or self-care (01) | DRG 61 ==
LOC: CCU 20:06 → 1SO 12-22 21:03
PROVIDERS: Internal Medicine Critical Care Medicine; Nurse Practitioner
PROC: 3E03317 Introduction of Other Thrombolytic into Peripheral Vein, Percutaneous Approach (ICD-10-PCS; principal; 2016-12-20)
PROC: 02HV33Z Insertion of Infusion Device into Superior Vena Cava, Percutaneous Approach (ICD-10-PCS; 2016-12-20)
PROC: 4A02X4A Measurement of Cardiac Electrical Activity, Guidance, External Approach (ICD-10-PCS; 2016-12-20)
DX: I63.10 Cerebral infarction due to embolism of unspecified precerebral artery (principal); J96.02 Acute respiratory failure with hypercapnia; N17.9 Acute kidney failure, unspecified; G40.909 Epilepsy, unspecified, not intractable, without status epilepticus; N18.9 Chronic kidney disease, unspecified; I12.9 Hypertensive chronic kidney disease with stage 1 through stage 4 chronic kidney disease, or unspecified chronic kidney disease; I25.10 Atherosclerotic heart disease of native coronary artery without angina pectoris; Z95.5 Presence of coronary angioplasty implant and graft; I73.9 Peripheral vascular disease, unspecified; F17.210 Nicotine dependence, cigarettes, uncomplicated; Z79.899 Other long term (current) drug therapy; Z79.82 Long term (current) use of aspirin; Z79.02 Long term (current) use of antithrombotics/antiplatelets
CPT/HCPCS: 31500; 31720; 36569; 36600; 70450; 70544; 70547; 70551; 71010; 80048; 80061; 80069; 80076; 80305; 81001; 81240; 81241; 82009; 82150; 82550; 82607; 82728; 82746; 82805; 83036; 83090; 83550; 83735; 84439; 84443; 84484; 85025; 85045; 85300; 85302; 85303; 85306; 85610; 85730; 86146; 86146-59; 86147; 87641; 93005; 93306; 93880; 93970; 94002; 94003; 94640; 94770; 95816; A9270-GY; C1751; C1894; C9113; J0360; J1953; J2250; J2370

== ENCOUNTER 2017-01-14 18:59 | Observation (INO) | payer SELFPAY ==
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
--- NOTE | ~2017-01-14 | DS ---
Discharge Summary [facility] [address] [place]. [address] NAME: BERE SINGH : 64 STATUS : DIS Eulalia PAT#: [id number] AGE: 56 ADM/REG DATE : 01/14/17 MR#: [id number] REPORT SERV DATE: 01/16/17 DICTATED BY: ILIA CONROY DATE: 01/16/17 REPORT STATUS : Draft TRANSCRIBED BY: MODL DATE: 01/16/17 ADMISSION DATE: 01/14/2017 DISCHARGE DATE: 01/15/2017 CONDITION ON DISCHARGE: Stable. DISPOSITION: Discharged to home. ADVICE ON DISCHARGE: To follow up with PCP within the next one to two weeks. Absolutely, stop smoking and stop drug use including marijuana, and there is also history of remote cocaine use that the patient denies right now. However, I have asked the patient to stop all illicit drug use and stop smoking most importantly. DIAGNOSES UPON DISCHARGE: 1. Leg cramping probably from statin use, which the patient inadvertently was taking two statins and now that it has been reduced to one statin and I have reduced the dose of the statin also at this time. The leg cramping also could be from atherosclerotic disease of the small blood vessels in the lower extremities distally. As proximally, there is no evidence of any major arterial obstruction. 2. 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 Other tests at this time including lupus anticoagulant, CRP, and rheumatoid factor are pending. OTHER DIAGNOSES: That are significant in this patient include; 1. Ischemic cardiomyopathy with ejection fraction of 45% from coronary artery disease and previous CABG. 2. Chronic kidney disease, stage 3, with a baseline creatinine of 1.8, which is stable at this time. 3. Diabetes mellitus, which is controlled with an A1c of 6. 4. Recent stroke because of noncompliance with Plavix and aspirin, but with no definitive or significant residual deficits at this time and the patient has been able to get around fine. Like I mentioned above, most importantly this patient needs to quit smoking and I have explained to him the risks of continuing to smoke including repeat heart attack, loss of limb, and also if he continues to do so. He understands. 5. The patient has had a left carotid endarterectomy too. Hence, he is a vasculopath and all the more reason to quit smoking in this patient. BRIEF HOSPITAL COURSE: The patient is a 56-year-old patient with above medical problems, who was mainly admitted with the diagnosis of cyanotic changes in the toes and probable acute ischemia of bilateral extremities. The patient was admitted and Vascular Surgery consult by Dr. Talbot was obtained. The patient did have fairly good pedal pulses including DP/PT. Dr. Talbot also examined the patient and suggested no other intervention at this time other than stopping smoking and continuing aspirin, Plavix, and statin. The patient apparently inadvertently was taking two statins, which may have worsened his leg Discharge Summary [address] [place]. [address] NAME: BERE SINGH : 64 STATUS : DIS Eulalia PAT#: [id number] AGE: 56 ADM/REG DATE : 01/14/17 MR#: [id number] REPORT SERV DATE: 01/16/17 DICTATED BY: ILIA CONROY DATE: 01/16/17 REPORT STATUS : Draft TRANSCRIBED BY: CARLOS ENRIQUE DATE: 01/16/17 cramping. This has been corrected now and the patient will be only on one statin Lipitor and at a reduced dose of 40 mg once a day and not 80. The patient states that he can take this and probably tolerated fairly well. He has cyanotic toes, resolved fairly well. The patient does have some discolorations still in the toes, which I think is secondary to Raynaud phenomenon, which could be idiopathic at this time. Other tests that have been ordered by Dr. Phelan to check for rheumatological causes of this including BRYSON has come back negative. Other tests that have also come back normal include his RA factor, which came back also negative. C-reactive protein that has come back high at 26.5, but the patient is a smoker and has known history of heart disease, diabetes, and other issues. However, complement levels including C3-C4 have come back normal. Troponin-I is normal as mentioned above. TSH is normal also. The patient also had a bilateral arterial Doppler ultrasound that came back negative for any arterial insufficiency in the major arteries in the lower extremities. The patient also had a venous Doppler of both lower extremities that came back negative for DVT. His most recent CBC shows WBC of 13,000, hemoglobin 15.1, hematocrit of 43.5, and platelet count of 340. Sedimentation rate is 37, which is mildly elevated, but INR is 1. Please correct the previous dictation that sed rate was normal. It is not normal and it is slightly elevated at 37, but again I do think that this is related to the patient's other comorbidities and smoking rather than an acute ischemia of the leg. His comprehensive metabolic profile shows sodium 135, potassium 3.2 which was corrected. BUN 23, creatinine 1.8 from the chronic kidney disease, stage 3. LFTs show mild elevation in alkaline phosphatase at 142, but ALT/AST normal. Chest x-ray at this time shows cardiomegaly, but no acute cardiopulmonary abnormality and the patient has also had sternotomy previously for the CABG itself. His BNP came back elevated at 745 and it appears that he does have a chronic elevation in his BNP secondary to ischemic cardiomyopathy with an EF of 45% for which he takes diuretics at home. Hence, he felt better and is being discharged home with all negative workup and advise as above. His home medications will be as follows; 1. Aspirin 81 mg once a day. 2. Plavix 75 mg once a day. 3. Lipitor 40 mg once a day which are most important. In addition to this, he will continue amlodipine 5 mg p.o. b.i.d., which may help with the Raynaud's; Coreg 6.25 mg p.o. b.i.d.; Keppra 1000 mg p.o. b.i.d. for seizure disorder, apparently; Depakote 500 mg p.o. b.i.d., which he is not sure is it for bipolar or for the seizure prevention itself, anyhow the patient is on both of these; and [place] 7.5/325 one p.o. t.i.d., limited dose of just #12. I have spent about 35 to 40 minutes in coordinating discharge care of this patient including [id number] encounter and summarizing this discharge. DICTATED BY: Ilia Conroy M.D. Discharge Summary [place] [address] [address] [place]. [address] NAME: BERE SINGH : 64 STATUS : DIS Eulalia PAT#: [id number] AGE: 56 ADM/REG DATE : 01/14/17 MR#: [id number] REPORT SERV DATE: 01/16/17 DICTATED BY: ILIA CONROY DATE: 01/16/17 REPORT STATUS : Draft TRANSCRIBED BY: CARLOS ENRIQUE DATE: 01/16/17 ROSANNAA/CARLOS ENRIQUE Ilia Conroy M.D. / [id number] CC: Ilia Conroy M.D.
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
[2017-01-14 18:42] LABS: BASOPHILS 0.4 %; BASOPHILS ABSOLUTE 0.05 10/3/uL (0.0-0.16); EOSINOPHILS 1.5 %; EOSINOPHILS ABSOLUTE 0.19 10/3/uL (0.0-0.53); HEMATOCRIT 45.3 % (40.0-51.0); HEMOGLOBIN 15.8 g/dL (13.6-17.8); IMMATURE GRANULOCYTES 0.2 %; IMMATURE GRANULOCYTES ABSOLUTE 0.03 10/3/uL (0.0-0.11); LYMPHOCYTES 14.2 %; LYMPHOCYTES ABSOLUTE 1.82 10/3/uL (0.67-4.30); MEAN CORPUS HGB CONC 34.9 g/dL (32.0-36.0); MEAN CORPUSCULAR HEMOGLOB 28.2 pg (26.0-34.0); MEAN PLATELET VOLUME 9.8 fL (9.2-13.0); MONOCYTES 6.2 %; NEUTROPHILS 77.5 %; NEUTROPHILS ABSOLUTE 9.92 10/3/uL (2.02-8.40); PLATELET COUNT 334 10/3/uL (150-400); RBC DISTRIBUTION WIDTH 13.4 % (12.0-16.0)
[2017-01-14 18:43] LABS: ER CBC TAT 0 Hrs 09 Mins; MANUAL DIFF NO %; MEAN CORPUSCULAR VOLUME 80.9 fL (80-100); WHITE BLOOD CELLS 12.8 10/3/uL (4.5-10.5)
[2017-01-14 18:49] LABS: PARTIAL THROMBO TIME 26.5 SEC (22.5-37.2); PROTIME (NOT ORD) 13.3 SEC (12.0-14.5)
[2017-01-14 18:58] LABS: A/G RATIO 0.7 (0.7-1.9); ALBUMIN 3.6 G/DL (3.5-5.0); ALKALINE PHOSPHATASE 163 U/L (45-117); BUN (BLOOD UREA NITROGEN) 23 MG/DL (6-23); CALCIUM, SERUM 9.7 MG/DL (8.5-10.4); CHLORIDE, SERUM 96 MMOL/L (96-112); CO2 (CARBON DIOXIDE) 26 MMOL/L (24-34); CPK 205 U/L (0-200); CREATININE 2.11 MG/DL (0.70-1.30); GFR AFRICAN AMERICAN 40 ML/MIN (>=60); GFR NON AFRICAN AMERICAN 34 ML/MIN (>=60); GLOBULIN 4.9 G/DL (2.5-4.1); GLUCOSE, SERUM 125 MG/DL (60-99); POTASSIUM, SERUM 3.3 MMOL/L (3.5-5.3); SGOT(AST) 26 U/L (5-40); SGPT(ALT) 24 U/L (5-65); SODIUM, SERUM 132 MMOL/L (135-148); TOTAL BILIRUBIN 0.5 MG/DL (0-1.2); TOTAL PROTEIN 8.5 G/DL (6.0-8.5); TROPONIN I 0.03 NG/ML (<0.05)
[~2017-01-14 18:59] MED LIST changes: +CENTRUM PO; +COREG6 PO; +DEPAKOT500 PO; +KEPPRA1000 MG PO; +LIPITOR80 MG PO; +POTASSIUM PO
[2017-01-15 01:08] LABS: ASCORBIC ACID (UR NOT ORDER) NEG (NEG); BILIRUBIN, URINE NEGATIVE (NEG); KETONE, URINE NEGATIVE (NEG); LEUKOCYTE ESTERASE(NOT OR NEG (NEG); WBC (NOT ORDERED) (RFLEX) 3 (0-5)
[2017-01-15 04:33] LABS: BASOPHILS 0.5 %; BASOPHILS ABSOLUTE 0.07 10/3/uL (0.0-0.16); EOSINOPHILS 2.4 %; EOSINOPHILS ABSOLUTE 0.31 10/3/uL (0.0-0.53); HEMATOCRIT 43.5 % (40.0-51.0); HEMOGLOBIN 15.1 g/dL (13.6-17.8); IMMATURE GRANULOCYTES 0.2 %; IMMATURE GRANULOCYTES ABSOLUTE 0.03 10/3/uL (0.0-0.11); LYMPHOCYTES 20.8 %; MEAN CORPUS HGB CONC 34.7 g/dL (32.0-36.0); MEAN CORPUSCULAR HEMOGLOB 28.3 pg (26.0-34.0); MEAN CORPUSCULAR VOLUME 81.6 fL (80-100); MEAN PLATELET VOLUME 9.4 fL (9.2-13.0); MONOCYTES 7.9 %; MONOCYTES ABSOLUTE 1.03 10/3/uL (0.21-1.20); NEUTROPHILS 68.2 %; NEUTROPHILS ABSOLUTE 8.84 10/3/uL (2.02-8.40); PLATELET COUNT 340 10/3/uL (150-400); RBC DISTRIBUTION WIDTH 13.5 % (12.0-16.0); RED CELL COUNT 5.33 10/6/uL (4.7-6.1)
[2017-01-15 04:34] LABS: MANUAL DIFF NO %
[2017-01-15 04:36] LABS: PROTIME (NOT ORD) 13.5 SEC (12.0-14.5)
[2017-01-15 04:37] LABS: PARTIAL THROMBO TIME 50.5 SEC (22.5-37.2)
[2017-01-15 04:47] LABS: AMPHETAMINES (NOT ORD) NEG (NEG); BARBITURATES (NOT ORDERED NEG (NEG); BENZODIAZEPINES (NOT ORD) NEG (NEG); CANNABINOIDS (THC) POS (NEG); COCAINE (NOT ORDERED) NEG (NEG); OPIATES NEG (NEG); PHENCYCLIDINE(PCP) NEG (NEG); TRICYCLICS NEG (NEG)
[2017-01-15 04:52] LABS: A/G RATIO 0.7 (0.7-1.9); ALBUMIN 3.3 G/DL (3.5-5.0); BUN (BLOOD UREA NITROGEN) 23 MG/DL (6-23); C-REACTIVE PROTEIN 26.5 MG/L (<8.0); CALCIUM, SERUM 9.2 MG/DL (8.5-10.4); CHLORIDE, SERUM 100 MMOL/L (96-112); CO2 (CARBON DIOXIDE) 25 MMOL/L (24-34); COMPLEMENT C3 138 MG/DL (75-161); COMPLEMENT C4 40.4 MG/DL (16-47); CREATININE 1.89 MG/DL (0.70-1.30); GFR AFRICAN AMERICAN 46 ML/MIN (>=60); GFR NON AFRICAN AMERICAN 39 ML/MIN (>=60); GLOBULIN 4.6 G/DL (2.5-4.1); GLUCOSE, SERUM 111 MG/DL (60-99); POTASSIUM, SERUM 3.2 MMOL/L (3.5-5.3); SGOT(AST) 22 U/L (5-40); SGPT(ALT) 22 U/L (5-65); SODIUM, SERUM 135 MMOL/L (135-148); TOTAL BILIRUBIN 0.5 MG/DL (0-1.2); TOTAL PROTEIN 7.9 G/DL (6.0-8.5); TROPONIN I 0.04 NG/ML (<0.05)
[2017-01-15 04:54] LABS: ALKALINE PHOSPHATASE 142 U/L (45-117); RHEUMATOID FACTOR QUANT < 10 IU/ML (0-15)
[2017-01-15 05:46] LABS: SED RATE 37 MM/HR (0-15)
[2017-01-15 10:02] LABS: ANA PATTERN SPECKLED
[2017-01-15] MEDS ORDERED: NORCO1 TA2 PO (15:51)
[2017-01-16 15:45] LABS: ANTI-CARDIOLIPIN ANTIBODY IGA 3 CU (0-20)
== END 2017-01-15 16:37 | disposition home or self-care (01) ==
LOC: ER 18:59 → CDU1 20:14 → CDU2 21:41
PROVIDERS: Emergency Medicine; Internal Medicine
DX: R23.0 Cyanosis (principal); R25.2 Cramp and spasm; R23.1 Pallor; N18.3 Chronic kidney disease, stage 3 (moderate); E11.22 Type 2 diabetes mellitus with diabetic chronic kidney disease; I63.9 Cerebral infarction, unspecified; G40.909 Epilepsy, unspecified, not intractable, without status epilepticus; I12.9 Hypertensive chronic kidney disease with stage 1 through stage 4 chronic kidney disease, or unspecified chronic kidney disease; I25.10 Atherosclerotic heart disease of native coronary artery without angina pectoris; I73.9 Peripheral vascular disease, unspecified; I51.7 Cardiomegaly; I25.5 Ischemic cardiomyopathy; E11.9 Type 2 diabetes mellitus without complications; R80.9 Proteinuria, unspecified; Z98.890 Other specified postprocedural states; Z79.82 Long term (current) use of aspirin; Z95.1 Presence of aortocoronary bypass graft; Z79.899 Other long term (current) drug therapy; Z88.5 Allergy status to narcotic agent
CPT/HCPCS: 71010; 80053; 80305; 81001; 82550; 82962; 83036; 83735; 83880; 84132; 84443; 84484; 85025; 85610; 85652; 85730; 86039; 86140; 86147; 86160; 86431; 93005; 93925; 93970; 96372; 96374; 96375; 96376; 99284; A9270-GY; G0378; J0360; J1170